=== PATIENT | female | born 2000 | race African-American/Black ===

== ENCOUNTER 2018-09-09 18:15 | Emergency (ER) | payer OTHER ==
[~2018-09-09] VITALS: Ht 180.3 cm; Wt 84.4 kg
[2018-09-09 18:42] LABS: ABSOLUTE NEUTROPHILS 6.6 thou/uL (1.4-8.2); BASOPHILS 0.6 % (0.0-2.0); EOSINOPHILS 0.8 % (0.0-3.0); HEMOGLOBIN 10.8 gm/dL (12.0-15.0); LYMPHOCYTES 24.4 % (24.0-44.0); MCH 31.4 pg (26.0-34.0); MCHC 34.7 g/dL (28.0-37.0); MCV 90.5 fL (80.0-100.0); MONOCYTES 6.9 % (1.0-8.0); PLATELET COUNT 210 thou/uL (150-400); POLYS 67.3 % (36.0-66.0); RBC 3.43 mil/uL (4.20-5.00); RDW 13.9 % (10.5-14.5); WBC 9.8 thou/uL (4.0-11.0)
[2018-09-09] MEDS ORDERED: PRENATA CHEWAB1 EACH PO (19:27)
[2018-09-09 21:32] VITALS: BP 112/53
== END 2018-09-09 21:35 | disposition home or self-care (01) ==
LOC: ER 18:15
PROVIDERS: Emergency Medicine
DX: O20.0 Threatened abortion (principal); Z3A.20 20 weeks gestation of pregnancy

== ENCOUNTER 2021-06-08 07:43 | Emergency (ER) | payer OTHER ==
[~2021-06-08] VITALS: Ht 180.3 cm; Wt 72.6 kg
[~2021-06-08 07:43] MED LIST: PRENATA CHEWAB1 EACH PO
[2021-06-08 07:53] VITALS: BP 114/59
[2021-06-08 08:13] LABS: URINE BILIRUBIN NEGATIVE (Negative); URINE BLOOD NEGATIVE (Negative); URINE CLARITY CLEAR; URINE COLOR YELLOW; URINE GLUCOSE-RANDOM* NEGATIVE (Negative); URINE KETONES NEGATIVE (Negative); URINE LEUKOCYTES-REFLEX TRACE (Negative); URINE NITRITE-REFLEX NEGATIVE (Negative); URINE PROTEIN (DIPSTICK) NEGATIVE (Negative); URINE SPECIFIC GRAVITY 1.025 (1.005-1.035)
[2021-06-08] MEDS ORDERED: PREDNISONE 20 M20 MG PO (08:58)
[2021-06-08] MEDS ORDERED: FLEXERIL PO (08:58)
[2021-06-08] MEDS ORDERED: IBUPROFEN 600600 M1 PO (08:58)
== END 2021-06-08 08:56 | disposition home or self-care (01) ==
LOC: ER 07:43
PROVIDERS: Emergency Medicine
DX: M54.16 Radiculopathy, lumbar region (principal); Z79.899 Other long term (current) drug therapy